=== PATIENT | female | born 2000 | race Caucasian/White ===

== ENCOUNTER 2019-02-23 19:23 | Inpatient (IN) ==
[2019-02-23] MEDS ORDERED: LACTATED RINGERS 1,000 ML IV ONE (19:50)
[2019-02-23] MEDS ORDERED: TERBUTALINE 1 MG/1 ML VIAL SUBCUT ONE (20:05)
[2019-02-23] MEDS ORDERED: LEVOFLOXACIN INJ 500 MG in PREMIX 1 EACH IV ONE (20:05)
[2019-02-23] MEDS ORDERED: CALCIUM GLUCONATE 1,000 MG in SODIUM CHLORIDE 0.9% 100 ML IV PRN (20:08)
[2019-02-23] MEDS ORDERED: MAGNESIUM SULF RIDER 100 ML IV PRN (20:08)
[2019-02-23] MEDS ORDERED: MAGNESIUM SULF DRIP 40 GM/1,000 ML ML IV PRN (20:08)
[2019-02-23 20:13] LABS: Apearance,Urine Slightly Hazy (Clear); Blood, Urine Negative (Negative); Glucose,Urine (UA) Negative (Negative); Ketones,Urine 5 mg/dL (Negative); Mucus,Urine Many /LPF (Occasional); Nitrite,Urine Negative (Negative); Protein,Urine 30 MG/DL; RBC,Urine 5 /HPF (0-4); Squamous Epithelial Cell,Urine Occasional /HPF (0-10); Urine Specific Gravity 1.033 (1.001-1.035); WBC,Urine 11 /HPF (0-6)
[2019-02-23 20:15] LABS: Bilirubin,Urine Small mg/dL (Negative); Urine Color Dark Yellow (Yellow)
[2019-02-23] MEDS: BETAMETH SODIUM PHOS/ACETATE 30 MG/5 ML VIAL IM SCH (20:19)
[2019-02-23 20:38] LABS: Basophils % 0.2 % (0.0-0.8); Eosinophils % 0.3 % (0.00-10.9); Hematocrit 32.2 VOL% (35.7-47.0); Hemoglobin 10.3 GM/DL (12.0-16.0); Immature Granulocytes % 0.5 %; Immature Granulocytes Absolute 0.06 #; Lymphocytes # 2.1 10*3/uL (1.4-4.0); Lymphocytes % 15.6 % (21.3-54.2); Mean Corpuscular Volume 93.3 FL (87-102); Mean Platelet Volume 11.3 FL (9.6-12.0); Monocytes % 7.5 % (1.7-12.7); Neutrophils % 75.9 % (38.7-73.9); Platelet Count 168 T/CUMM (130-400); Red Blood Count 3.45 MC/CUMM (3.8-5.5); Red Cell Distribution Width 13.3 % (9.3-17.3); White Blood Count 13.2 T/CUMM (4-12)
[2019-02-23] MEDS: ONDANSETRON 4 MG/2 ML VIAL IV PRN (20:58)
[2019-02-23] MEDS: MEPERIDINE 25 MG/1 ML VIAL IV PRN (20:58)
[2019-02-23 21:06] LABS: Alanine Aminotransferase 12 U/L (13-56); Albumin 2.7 G/DL (3.4-5.0); Alkaline Phosphatase 112 U/L (45-117); Aspartate Amino Transferase 14 U/L (0-37); Bilirubin,Total < 0.39 MG/DL (0.2-1.0); Blood Urea Nitrogen 6 MG/DL (7-18); Calcium 8.3 MG/DL (8.5-10.1); Glucose 86 MG/DL (74-106); Osmolality,Calculated 279.1 MOS/KG (273-304); Total Protein 6.5 G/DL (6.4-8.3)
[2019-02-23 23:59] LABS: Barbiturates Screen,Urine Negative (Negative); Benzodiazepines Screen,Urine Negative (Negative); Cannabinoid Screen,Urine Negative (Negative); Opiate Screen,Urine Negative (Negative); Phencyclidine Screen,Urine Negative (Negative)
[2019-02-24] MEDS: MEPERIDINE 25 MG/1 ML VIAL IV PRN ×2 (00:36→21:25)
[2019-02-24] MEDS: LACTATED RINGERS 1,000 ML IV SCH ×3 (00:38→18:32)
[2019-02-24] MEDS: BETAMETH SODIUM PHOS/ACETATE 30 MG/5 ML VIAL IM SCH ×2 (07:20→16:34)
[2019-02-24] MEDS ORDERED: LEVOFLOXACIN INJ 500 MG in PREMIX 1 EACH IV SCH (09:30)
[2019-02-24] MEDS: NIFEdipine 10 MG CAPSULE PO SCH ×2 (17:59→23:59)
[2019-02-24] MEDS ORDERED: TERBUTALINE 1 MG/1 ML VIAL SUBCUT ONE (21:14)
[2019-02-24] MEDS: ONDANSETRON 4 MG/2 ML VIAL IV PRN (21:26)
[2019-02-25] MEDS: NIFEdipine 10 MG CAPSULE PO SCH ×2 (06:58→11:55)
[2019-02-25] MEDS: CLINDAMYCIN INJ 900 MG in PREMIX 1 EACH IV SCH (07:03)
[2019-02-25] MEDS: ONDANSETRON 4 MG/2 ML VIAL IV PRN (14:24)
[2019-02-25] MEDS: LACTATED RINGERS 1,000 ML IV SCH (14:31)
[2019-02-25] MEDS ORDERED: CITRIC ACID/SODIUM CITRATE 30 ML UDCUP PO ONE (14:34)
[2019-02-25] MEDS ORDERED: CLINDAMYCIN INJ 900 MG in PREMIX 1 EACH IV ONE (14:34)
[2019-02-25] MEDS ORDERED: FAMOTIDINE 20 MG/2 ML VIAL IV ONE (14:34)
[2019-02-25] MEDS ORDERED: OXYTOCIN/LR 30 UNIT/1,000 ML BAG IV ONE (14:37)
[2019-02-25] MEDS ORDERED: OXYTOCIN 10 UNIT/ML VIAL IM ONE (14:37)
[2019-02-25] MEDS ORDERED: miSOPROStol 200 MCG TABLET ONE (14:40)
[2019-02-25] MEDS ORDERED: METHYLERGONOVINE 0.2 MG/1 ML AMP ONE (14:40)
[2019-02-25] MEDS ORDERED: CARBOPROST TROMETHAMINE 250 MCG/ML AMP IM ONE (14:40)
[2019-02-25 15:48] LABS: Cord Arterial Blood HCO3 22.2 MMOL/L
[2019-02-25 15:50] LABS: Cord Venous Blood HCO3 22.4 MMOL/L; Cord Venous Blood PCO2 44.1 MMHG; Cord Venous Blood PO2 30.1
[2019-02-25] MEDS ORDERED: MORPHINE 10 MG/10 ML VIAL ONE (16:01)
[2019-02-25] MEDS ORDERED: ONDANSETRON 4 MG/2 ML VIAL ONE (16:17)
[2019-02-25] MEDS ORDERED: BUPIVACAINE SPINAL 0.75% 2 ML AMP SPINAL ONE (16:17)
[2019-02-25] MEDS ORDERED: OXYTOCIN/LR 20 UNIT/1,000 ML BAG IV ONE (16:18)
[2019-02-25] MEDS ORDERED: RHO(D) IMMUNE GLOBULIN 300 MCG SYRINGE IM ONE (16:18)
[2019-02-25] MEDS ORDERED: PHENYLEPHRINE 1 MG/10 ML SYRINGE IV ONE (16:18)
[2019-02-25] MEDS ORDERED: ACETAMINOPHEN 325 MG TABLET PO PRN (16:18)
[2019-02-25] MEDS ORDERED: ONDANSETRON 4 MG/2 ML VIAL IV PRN (16:18)
[2019-02-25 18:25] LABS: Barbiturates Screen,Urine Negative (Negative); Benzodiazepines Screen,Urine Negative (Negative); Cannabinoid Screen,Urine Negative (Negative); Opiate Screen,Urine Negative (Negative); Phencyclidine Screen,Urine Negative (Negative)
[2019-02-25] MEDS ORDERED: diphenhydrAMINE 50 MG/1 ML VIAL IV ONE (19:51)
[2019-02-25] MEDS: ceFAZolin 1,000 MG in SYRINGE 1 EACH IV SCH (23:55)
[2019-02-26] MEDS: DOCUSATE SODIUM 100 MG CAPSULE PO SCH ×3 (00:05→20:51)
[2019-02-26] MEDS: LACTATED RINGERS 1,000 ML IV SCH ×2 (00:06)
[2019-02-26] MEDS: CLINDAMYCIN INJ 900 MG in PREMIX 1 EACH IV SCH (00:08)
[2019-02-26] MEDS ORDERED: SODIUM CHLORIDE 0.9% 100 ML IV ONE (00:16)
[2019-02-26 01:28] LABS: Basophils % 0.1 % (0.0-0.8); Hematocrit 26.6 VOL% (35.7-47.0); Hemoglobin 8.5 GM/DL (12.0-16.0); Immature Granulocytes % 0.8 %; Immature Granulocytes Absolute 0.12 #; Lymphocytes # 1.3 10*3/uL (1.4-4.0); Lymphocytes % 8.2 % (21.3-54.2); Mean Corpuscular Volume 91.7 FL (87-102); Mean Platelet Volume 11.7 FL (9.6-12.0); Neutrophils % 82.9 % (38.7-73.9); Platelet Count 166 T/CUMM (130-400); Red Cell Distribution Width 13.4 % (9.3-17.3); White Blood Count 15.4 T/CUMM (4-12)
[2019-02-26 02:05] LABS: Alanine Aminotransferase 12 U/L (13-56); Albumin 1.9 G/DL (3.4-5.0); Alkaline Phosphatase 74 U/L (45-117); Aspartate Amino Transferase 17 U/L (0-37); Bilirubin,Total < 0.39 MG/DL (0.2-1.0); Blood Urea Nitrogen 5 MG/DL (7-18); Calcium 7.8 MG/DL (8.5-10.1); Glucose 83 MG/DL (74-106); Osmolality,Calculated 274.4 MOS/KG (273-304); Total Protein 4.8 G/DL (6.4-8.3)
[2019-02-26] MEDS: ceFAZolin 1,000 MG in SYRINGE 1 EACH IV SCH (05:02)
[2019-02-26 06:48] LABS: Basophils % 0.1 % (0.0-0.8); Hematocrit 27.2 VOL% (35.7-47.0); Hemoglobin 8.7 GM/DL (12.0-16.0); Immature Granulocytes % 0.7 %; Lymphocytes # 1.5 10*3/uL (1.4-4.0); Lymphocytes % 10.4 % (21.3-54.2); Mean Corpuscular Volume 91.9 FL (87-102); Mean Platelet Volume 11.7 FL (9.6-12.0); Neutrophils % 78.8 % (38.7-73.9); Platelet Count 165 T/CUMM (130-400); Red Blood Count 2.96 MC/CUMM (3.8-5.5); Red Cell Distribution Width 13.3 % (9.3-17.3); White Blood Count 14.6 T/CUMM (4-12)
[2019-02-26] MEDS ORDERED: ceFAZolin 1,000 MG in SYRINGE 1 EACH IV ONE (08:20)
[2019-02-26] MEDS: MULTIVITAMIN (PRENATAL) TABLET PO SCH (09:00)
[2019-02-26] MEDS: METOCLOPRAMIDE 10 MG TABLET PO PRN ×2 (09:00→16:20)
[2019-02-26] MEDS: MAGNESIUM HYDROXIDE SUSP 30 ML UDCUP PO PRN ×2 (09:00→20:51)
[2019-02-26] MEDS: SIMETHICONE CHEW 80 MG TABLET PO PRN (09:03)
[2019-02-26] MEDS: IBUPROFEN 800 MG TABLET PO PRN (16:20)
[2019-02-26] MEDS: FERROUS SULFATE 325 MG TABLET PO SCH (21:15)
[2019-02-27] MEDS: LACTATED RINGERS 1,000 ML IV SCH ×2 (00:50→00:51)
[2019-02-27 07:46] VITALS: BP 111/65
[2019-02-27] MEDS: MULTIVITAMIN (PRENATAL) TABLET PO SCH (09:05)
[2019-02-27] MEDS: MAGNESIUM HYDROXIDE SUSP 30 ML UDCUP PO PRN (09:05)
[2019-02-27] MEDS: SIMETHICONE CHEW 80 MG TABLET PO PRN (09:05)
[2019-02-27] MEDS: FERROUS SULFATE 325 MG TABLET PO SCH (09:05)
[2019-02-27] MEDS: DOCUSATE SODIUM 100 MG CAPSULE PO SCH (09:06)
[2019-02-27] MEDS: IBUPROFEN 800 MG TABLET PO PRN (09:06)
[2019-02-27] MEDS: METOCLOPRAMIDE 10 MG TABLET PO PRN (09:06)
[2019-02-27] MEDS ORDERED: MEASLES/MUMPS/RUBELLA VACCINE 0.5 ML VIAL SUBCUT ONE (09:58)
[2019-02-27] MEDS ORDERED: DIPH/TET/ACEL PERT BOOSTER VACCINE 0.5 ML VIAL IM ONE (10:51)
== END 2019-02-27 12:20 | disposition home or self-care (01) | DRG 540 ==
LOC: N.LDOUT 19:23 → N.LD 19:27 → N.OB 02-25 20:50
PROVIDERS: ADMIT Obstetrics & Gynecology; ATTEND Obstetrics & Gynecology
PROC: LDCSECT (ICD-10-PCS; 2019-02-25 14:30)